=== PATIENT | female | born 1990 ===

== ENCOUNTER → 2024-03-18 | Outpatient (CLI) | payer MEDICAID | END | disposition home or self-care (01) | LOC: Rad HDHVI 08:04 | PROVIDERS: ATTEND Internal Medicine Cardiovascular Disease | DX: I49.3 Ventricular premature depolarization (principal); I49.1 Atrial premature depolarization; R06.02 Shortness of breath; I48.91 Unspecified atrial fibrillation | CPT/HCPCS: 93306 ==

== ENCOUNTER → 2024-03-23 | Outpatient (CLI) | payer MEDICAID ==
[~2024-03-23] VITALS: Ht 160 cm; Wt 124.3 kg
== END | disposition home or self-care (01) ==
LOC: Rad HDHVI 08:59
PROVIDERS: ATTEND Internal Medicine Cardiovascular Disease
DX: I10 Essential (primary) hypertension (principal); I48.0 Paroxysmal atrial fibrillation; R06.02 Shortness of breath; F17.210 Nicotine dependence, cigarettes, uncomplicated; Z82.49 Family history of ischemic heart disease and other diseases of the circulatory system
CPT/HCPCS: 78452; 93017; 96374; A9500